=== PATIENT | female | born 1980 | race Caucasian/White ===

== ENCOUNTER 2016-11-28 16:30 | Outpatient (CLI) | payer BC ==
[2016-12-05] MEDS ORDERED: ASA CHILDREN'S81 MG PO (19:26)
[2016-12-05] MEDS ORDERED: FOLVITE-DPS1 MG PO (19:27)
[2016-12-05] MEDS ORDERED: PRENATAL VIT1 TAB PO (19:27)
[2016-12-05] MEDS ORDERED: VALTREX DPS500 MG PO (19:27)
[2016-12-05] MEDS ORDERED: PLAQUENIL DPS200 MG PO (19:27)
[2016-12-05] MEDS ORDERED: VITAMIN D31000 UNIT PO (19:27)
[2016-12-05] MEDS ORDERED: TYLENOL #3 DPS1 TAB PO (19:28)
[2016-12-05] MEDS ORDERED: MOTRIN-DPS800 MG PO (19:28)
[2016-12-05] MEDS ORDERED: COMPOUND TP (19:31)
== END 2016-11-28 17:40 | disposition home or self-care (01) ==
LOC: BC 16:30 → 2LDRP 16:30 → BC 17:40
DX: O42.92 Full-term premature rupture of membranes, unspecified as to length of time between rupture and onset of labor (principal); Z3A.38 38 weeks gestation of pregnancy

== ENCOUNTER 2016-12-02 06:30 | Inpatient (IN) | payer BC ==
[~2016-12-02] VITALS: Ht 165.1 cm; Wt 108.9 kg
--- NOTE | ~2016-12-02 | FD ---
ADMIT: 12/02/2016 RM/LOC: [address] [facility] MR#: [id number] [address] JAVIER SMYTH [address] [place] [address] Final Diagnosis SEX: F AGE: 36 : 1980 ADMISSION DATE: 12/02/2016 DISCHARGE DATE: 12/04/2016 FINAL DIAGNOSIS: 1. Status post spontaneous vaginal delivery. 2. Advanced maternal age. 3. Rheumatoid arthritis. 4. Obesity. PROCEDURE: Spontaneous vaginal delivery with delivery of viable male, 7 pounds 12 ounces, Apgars 8 and 9. Bhavana Vazquez MD/ kirt JOB #: [id number] CC: Bhavaan Vazquez MD, Attending Physician Bhavana Vazquez MD, Family Physician
--- NOTE | ~2016-12-02 | HP ---
ADMIT: 12/02/2016 RM/LOC: 220 [facility] MR#: [id number] [address] JAVIER SMYTH [address] [place] [address] History and Physical SEX: F AGE: 36 : 1980 DATE OF SERVICE: CHIEF COMPLAINT: Induction of labor. HISTORY OF PRESENT ILLNESS: This is a 36-year-old female, 1, para 0, who presents to the [facility] with an intrauterine at 39-1/7th weeks' gestation with estimated date of confinement of 12/08/2016. Her estimated date of confinement is by last menstrual period and consistent with a first trimester ultrasound. She presents to the [facility] for induction of labor as recommended by Maternal Medicine. Her has been complicated by advanced maternal age, rheumatoid arthritis, obesity, history of infertility, and a positive JUSTIN with also a positive beta-2 glycoprotein IgG. She has been on a baby aspirin. She has had ultrasounds demonstrating adequate growth as well as reassuring antepartum testing. At this time, Maternal Medicine has recommended induction of labor at 39 weeks'. Her has additionally been complicated by history of HSV-2. She denies any signs or symptoms of an outbreak at this time. LABORATORY DATA: Blood type is A positive. Antibody screen negative. Hepatitis B surface antigen negative. RPR nonreactive. Rubella immune. HIV negative. Gonorrhea and chlamydia negative. She did have normal first trimester screening done through her reproductive endocrinology physician. She had a normal second trimester alpha-fetoprotein. Diabetic screen 115. Group B strep is negative. PAST MEDICAL HISTORY: She denies hypertension, diabetes, asthma, kidney, or thyroid disease. She does have history of rheumatoid arthritis as well as genital herpes. PAST SURGICAL HISTORY: Tonsillectomy. SOCIAL HISTORY: She is . She denies tobacco, alcohol, or drug use. ALLERGIES: NO KNOWN DRUG ALLERGIES. CURRENT MEDICATIONS: 1. vitamins. 2. Plaquenil 200 mg daily. 3. Vitamin D daily. 4. Unisom as needed. 5. Vitamin B as needed. 6. Baby aspirin 81 mg daily. 7. Folic acid 1 mg daily. 8. Valtrex 500 mg daily. PHYSICAL EXAMINATION: VITAL SIGNS: She is afebrile. Blood pressure is 108/63, pulse 79. GENERAL: This is a pleasant female, in no acute distress. ADMIT: 12/02/2016 RM/LOC: 220 [facility] MR#: [id number] [address] HAJA JAVIER [address] [place] [address] History and Physical SEX: F AGE: 36 : 1980 HEENT: Head is normocephalic, atraumatic. Pupils are equal, round, and reactive to light and accommodation. Extraocular muscles are intact. NECK: Supple. HEART: Regular rate and rhythm. LUNGS: Clear bilaterally. ABDOMEN: Soft, nontender, and nondistended. Gravid. EXTREMITIES: Nontender. heart tones are 135 to 145 baseline. Moderate variability is present, 15 x 15 accelerations are present. Decelerations are absent. Uterine contractions are rare. Her cervix is fingertip, long, -2 station per nursing staff. Fetus is vertex by ultrasound. Estimated weight is 7.5 pounds. IMPRESSION: 1. This is a 36-year-old female, 1, para 0, with an intrauterine at 39-1/7th weeks' gestation. 2. Rheumatoid arthritis. 3. Beta-2 glycoprotein IgG positive and JUSTIN positive. 4. Advanced maternal age. 5. Obesity. PLAN: At this time, we do plan to proceed with induction of labor. We will start with misoprostol 25 mcg, place this vaginally and repeat as needed. We will also use a Cook catheter, Pitocin, and assisted rupture of membranes as needed, and anticipate a spontaneous vaginal delivery. Bhavana Vazquez MD/ pat JOB #: [id number] CC: Bhavana Vazquez, Attending Physician Bhavana Vazquez, Family Physician
[2016-12-05] MEDS ORDERED: ASA CHILDREN'S81 MG PO (19:26)
[2016-12-05] MEDS ORDERED: VITAMIN D31000 UNIT PO (19:27)
[2016-12-05] MEDS ORDERED: FOLVITE-DPS1 MG PO (19:27)
[2016-12-05] MEDS ORDERED: VALTREX DPS500 MG PO (19:27)
[2016-12-05] MEDS ORDERED: PLAQUENIL DPS200 MG PO (19:27)
[2016-12-05] MEDS ORDERED: PRENATAL VIT1 TAB PO (19:27)
[2016-12-05] MEDS ORDERED: MOTRIN-DPS800 MG PO (19:28)
[2016-12-05] MEDS ORDERED: TYLENOL #3 DPS1 TAB PO (19:28)
[2016-12-05] MEDS ORDERED: COMPOUND TP (19:31)
--- NOTE | 2016-12-25 12:37 | OR ---
ADMIT: 12/02/2016 RM/LOC: 220 [facility] MR#: [id number] [address] JAVIER SMYTH [address] [place] [address] Operative/Delivery Room Report SEX: F AGE: 36 : 1980 SURGERY DATE: 12/03/2016 SURGEON: Bhavana Vazquez MD PREOPERATIVE DIAGNOSES: 1. Intrauterine at 39-2/7th weeks' gestation. 2. Active labor. 3. Group B streptococcus negative. POSTOPERATIVE DIAGNOSES: 1. Intrauterine at 39-2/7th weeks' gestation. 2. Active labor. 3. Group B streptococcus negative. 4. Delivery of a viable male infant at 0448 hours weighing 7 pounds 12 ounces with scores of 8 at 1 minute and 9 at 5 minutes. PROCEDURE: Spontaneous vaginal delivery with repair of second-degree midline laceration. ANESTHESIA: Epidural and 1% lidocaine. COMPLICATIONS: None. ESTIMATED BLOOD LOSS: 300 mL. FLUIDS: Crystalloid. INDICATIONS: This is a 36-year-old female, 1, para 0, who [facility] with an intrauterine at 39-1/7th weeks' gestation for induction of labor. This was recommended by Maternal Medicine secondary to advanced maternal age, rheumatoid arthritis, positive JUSTIN with positive beta-2 glycoprotein IgG. Her has otherwise been complicated by obesity and history of infertility. She was given 2 doses of misoprostol 25 mcg vaginally. After this, a Resendiz bulb was placed. Assisted rupture of membranes was performed. She did receive Pitocin augmentation and requested and received an epidural for pain control. She did progress to be complete in a satisfactory fashion, at which time, she was allowed to push bringing the 's vertex to the perineum. DESCRIPTION OF PROCEDURE: The patient was placed in the dorsal lithotomy position. She was prepped and draped in the usual sterile fashion. She was asked to push and delivered the infant's vertex in the right occiput anterior position over the midline. Nuchal cord was checked, none was noted. The ADMIT: 12/02/2016 RM/LOC: 220 [facility] MR#: [id number] [address] JAVIER SMYTH [address] [place] [address] Operative/Delivery Room Report SEX: F AGE: 36 : 1980 anterior shoulder delivered easily, followed by the posterior shoulder, and the remainder of the infant. The did have spontaneous cry and movement of all 4 extremities. He was passed to the mother's abdomen where nursing personnel were in attendance. The cord was clamped and cut by the father. After 1 minute, cord blood was obtained. The placenta delivered spontaneously. Twenty units of Pitocin were infused with IV fluids to help firm the uterus. Examination of the cervix and vaginal vault did not reveal any lacerations. Examination of the perineum revealed a second-degree midline laceration. This was repaired using 3-0 Vicryl in the usual fashion. The patient tolerated the procedure well. Sponge, needle, and instrument counts were correct. The patient did recover in her Labor and Delivery suite with her . Bhavana Vazquez MD/ pat JOB #: [id number] CC: Bhavana Vazquez, Attending Physician Bhavana Vazquez, Family Physician
== END 2016-12-04 18:00 | disposition home or self-care (01) | DRG 774 ==
LOC: BC 06:30 → 2LDRP 06:30 → BC 12-08 11:23
PROVIDERS: ADMIT Obstetrics & Gynecology
PROC: 3E0P7GC Introduction of Other Therapeutic Substance into Female Reproductive, Via Natural or Artificial Opening (ICD-10-PCS; principal; 2016-12-03)
PROC: 0KQM0ZZ Repair Perineum Muscle, Open Approach (ICD-10-PCS; principal; 2016-12-03)
PROC: 10907ZC Drainage of Amniotic Fluid, Therapeutic from Products of Conception, Via Natural or Artificial Opening (ICD-10-PCS; principal; 2016-12-03)
PROC: 10E0XZZ Delivery of Products of Conception, External Approach (ICD-10-PCS; principal; 2016-12-03)
DX: O99.89 Other specified diseases and conditions complicating pregnancy, childbirth and the puerperium (principal); O98.52 Other viral diseases complicating childbirth; E66.9 Obesity, unspecified; B00.9 Herpesviral infection, unspecified; M06.9 Rheumatoid arthritis, unspecified; O99.214 Obesity complicating childbirth; O70.1 Second degree perineal laceration during delivery; Z79.82 Long term (current) use of aspirin; Z3A.39 39 weeks gestation of pregnancy; Z37.0 Single live birth; Z68.39 Body mass index [BMI] 39.0-39.9, adult

== ENCOUNTER → 2016-12-16 | Outpatient (CLI) | payer BC ==
[~2016-12-16] MED LIST: ASA CHILDREN'S81 MG PO; COMPOUND TP; FOLVITE-DPS1 MG PO; MOTRIN-DPS800 MG PO; PLAQUENIL DPS200 MG PO; PRENATAL VIT1 TAB PO; TYLENOL #3 DPS1 TAB PO; VALTREX DPS500 MG PO; VITAMIN D31000 UNIT PO
== END | disposition home or self-care (01) ==
LOC: RAD.S 16:00
DX: M25.532 Pain in left wrist (principal); R22.32 Localized swelling, mass and lump, left upper limb; Z53.9 Procedure and treatment not carried out, unspecified reason